=== PATIENT | female | born 1965 | race Caucasian/White ===

== ENCOUNTER 2018-09-15 08:35 | Day surgery (SDC) | payer MEDICARE, MEDICAID ==
[2018-09-15] MEDS ORDERED: Sodium Chloride 0.9% 1,000 ML IV SCH (09:15)
[2018-09-15] MEDS ORDERED: Midazolam 1 MG/ML 2 ML SDV ONE (09:38)
[2018-09-15] MEDS ORDERED: fentaNYL 100 MCG/2 ML SDV ONE (09:38)
[2018-09-15] MEDS ORDERED: Propofol 200 MG/20 ML SDV ONE (09:38)
--- NOTE | 2018-09-16 08:21 | OR ---
DATE OF PROCEDURE: 09/15/2018 PROCEDURE: Colonoscopy. FINDINGS: Cecal polyp, approximately 5 mm, completely removed using cold biopsy forceps. COMPLICATIONS: None. SURGEON: Richard Lee MD FUNERAL ARRANGER: None. PREOPERATIVE DIAGNOSIS: Screening colonoscopy. POSTOPERATIVE DIAGNOSIS: Screening colonoscopy. RISKS: Risks, benefits, alternatives, and limitations including, but not limited to infection, bleeding, and perforation were explained to the patient, who wished to proceed. PROCEDURE IN DETAIL: The patient was placed in left lateral decubitus position. Digital rectal exam was performed and showed mild external hemorrhoids. The scope was introduced and advanced atraumatically to the ileocecal valve. The scope was brought back through the ascending, transverse, descending colon, and retroflexed. The aforementioned polyp was identified and completely removed. No other masses. No areas of concern. No old or new blood. The patient tolerated the procedure well. Richard Lee MD /[id number]
== END 2018-09-15 11:37 | disposition home or self-care (01) ==
LOC: JP.SDS 08:35
PROVIDERS: ATTEND Surgery
DX: Z12.11 Encounter for screening for malignant neoplasm of colon (principal); D12.0 Benign neoplasm of cecum; F43.10 Post-traumatic stress disorder, unspecified; N60.09 Solitary cyst of unspecified breast; E66.9 Obesity, unspecified; Z68.26 Body mass index [BMI] 26.0-26.9, adult
CPT/HCPCS: 45380; 81025; J2250; J2704; J3010; J7030; 88305

== ENCOUNTER 2024-07-17 07:44 | Day surgery (SDC) | payer MEDICARE, MEDICAID ==
[2024-07-17] MEDS ORDERED: fentaNYL 50 MCG/ML SDV ONE (07:45)
[2024-07-17] MEDS ORDERED: Midazolam 1 MG/ML 2 ML SDV ONE (07:45)
[2024-07-17] MEDS ORDERED: Propofol 200 MG/20 ML SDV ONE (07:45)
[2024-07-17] MEDS: Lactated Ringers 1,000 ML IV SCH (08:31)
== END 2024-07-17 10:52 | disposition home or self-care (01) ==
LOC: JP.SDS 07:44
PROVIDERS: ATTEND Surgery
DX: Z12.11 Encounter for screening for malignant neoplasm of colon (principal); D12.2 Benign neoplasm of ascending colon; F32.A Depression, unspecified; E66.9 Obesity, unspecified; Z88.8 Allergy status to other drugs, medicaments and biological substances
CPT/HCPCS: 00811; 45380; 88305; 88341; 88342; J2250; J2704; J3010; J7120